=== PATIENT | male | born 1950 | race Caucasian/White ===

== ENCOUNTER → 2018-08-19 | Outpatient (CLI) | payer MEDICARE ==
[~2018-08-19] MED LIST: GADOBENATE DIMEGLUMINE 1 ML IV ONE
[2018-08-19 09:12] LABS: BLOOD UREA NITROGEN 14 mg/dL (7-26); BUN/CREATININE RATIO 19 (6-25); CREATININE, SERUM 0.74 mg/dL (0.72-1.25); EST GLOMERULAR FILTRATION RATE > 60 ML/MIN (60-)
--- NOTE | 2018-08-22 13:16 | Diagnostic Imaging Report ---
EXAMINATION: MRI Abdomen with and without contrast/MRCP. TECHNIQUE: Axial T1 nonfat sat in and out of phase, axial T2 fat sat, coronal T2 nonfat sat, axial DWI and ADC MR images of the abdomen were obtained before and after the administration of 20 cc of gadolinium. Axial T1 fat sat GRE dynamic images in precontrast, arterial, venous and delayed phases were obtained. Heavily T2-weighted MRCP images were also performed, including thick and thin slab MRCP ASSETT CLINICAL HISTORY:Abnormal liver enzymes, abdominal pain, jaundice COMPARISON: None. FINDINGS: LOWER THORAX: Unremarkable. LIVER: Normal hepatic size. Nodular hepatic contour.. No hepatic signal abnormality. * Ill-defined, irregular and heterogeneous, T1 hypointense mass which measures approximately 13.0 x 12.6 cm and involves predominantly hepatic segments I, VIII, V, and VII (for example series 9, image 88). Multiple additional surrounding T2 minimally hyperintense, T1 hypointense satellite lesions are identified, with the largest measuring 1.8 cm in hepatic segment VII (series 9, image 84) and 2.9 cm hepatic segment (series 9, image 92). * This mass shows a questionable thin arterially enhancing edge, without internal arterial enhancement, and remains hypointense on portal venous and delayed phases. * There is nonopacification of the right portal vein, with a filling defect extending almost to the portal vein bifurcation (for example series 9, image 149 and series 6, image 20). Middle and right hepatic veins are narrowed but patent. * An ill-defined 2.9 cm hypodense lesion with thin enhancing margin is noted in hepatic segment IV B (series 9, image 88). BILIARY: Mild focal dilation of peripherally located intrahepatic bile ducts in segments VII, VIII distal to the above-described mass (for example series 12, images 18, 21-23). Common bile duct is normal in caliber. No intraluminal filling defects.. Gallbladder is unremarkable, without stones. No wall thickening. PANCREAS: No mass or ductal dilatation. SPLEEN: Spleen is moderately enlarged measuring 19.5 cm in AP diameter.. ADRENALS: No nodules. KIDNEYS: No hydronephrosis or solid enhancing mass in the imaged portion of the kidneys. PERITONEUM / RETROPERITONEUM: Moderate intra-abdominal ascites.. GI TRACT: The visualized bowel shows no dilation or obstruction. LYMPH NODES: No upper abdominal lymphadenopathy. VESSELS: The celiac trunk, superior and inferior mesenteric and bilateral renal arteries are patent. The left and main portal, superior mesenteric and splenic veins are patent. Portal vein is dilated, measuring 15.6 mm at the keila hepatis. Recanalized periumbilical vein. . BONES AND SOFT TISSUES: No abnormal bone marrow signal. No soft tissue abnormalities. IMPRESSION: 1. Cirrhotic liver with evidence of portal hypertension, manifested by moderate ascites, moderate splenomegaly dilation of the portal vein and recanalized periumbilical vein. 2. 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 3. Mild focal dilation of upper fluid located intrahepatic bile ducts distal to the level described mass, likely from mass effect. No extrahepatic biliary ductal dilation or MR evidence of choledocholithiasis. No cholelithiasis. Signed by: Dr. Estrada Guzman M.D. on 08/22/2018 1:13 PM
== END ==
LOC: MRI 07:47
PROVIDERS: ATTEND Internal Medicine Gastroenterology
DX: R74.8 Abnormal levels of other serum enzymes (principal); R94.5 Abnormal results of liver function studies
CPT/HCPCS: 36415; 74183; 82565; 84520; A9577